=== PATIENT | female | born 1975 | race American Indian/Alaskan Native ===

== ENCOUNTER 2019-05-20 07:27 | Day surgery (SDC) | payer OTHER ==
[2019-05-20] MEDS ORDERED: ECOTRIN PO ONE (07:37)
[2019-05-20] MEDS ORDERED: NACL 0.9% 500 ML 500 ML IV SCH (08:00)
[2019-05-20 08:11] LABS: Basophils # (Auto) 0.1 K/mm3 (0.0-0.1); Eosinophils # (Auto) 0.1 K/mm3 (0.0-0.4); Eosinophils % (Auto) 2.2 % (0.0-4.3); Hematocrit 38.5 % (30.3-42.9); Lymphocytes # (Auto) 1.6 K/mm3 (1.2-5.4); Lymphocytes % (Auto) 27.8 % (13.4-35.0); Mean Corpuscular HGB Conc 34 % (30-34); Mean Corpuscular Volume 86 fl (79-97); Monocytes # (Auto) 0.5 K/mm3 (0.0-0.8); Platelet Count 279 K/mm3 (140-440); Red Blood Count 4.46 M/mm3 (3.65-5.03); Red Cell Distribution Width 13.2 % (13.2-15.2)
[2019-05-20 08:21] LABS: INR 1.07 (0.87-1.13)
[2019-05-20 08:22] LABS: Partial Thromboplastin Time 32.4 Sec. (24.2-36.6)
[2019-05-20] MEDS ORDERED: HEPARIN 10,000 UNITS/10 ML ONE (08:24)
[2019-05-20] MEDS ORDERED: HEPARIN/NS 5000 UNIT/500ML(CATH LAB) 1,000 ML IR ONE (08:24)
[2019-05-20] MEDS ORDERED: CALAN ONE (08:24)
[2019-05-20] MEDS ORDERED: NITROGLYCERIN SYRINGE 3 ML ONE (08:25)
[2019-05-20] MEDS ORDERED: XYLOCAINE 2% INFILTRATI ONE (08:25)
[2019-05-20] MEDS ORDERED: VERSED ONE (08:26)
[2019-05-20] MEDS ORDERED: SUBLIMAZE ONE (08:26)
[2019-05-20 08:37] LABS: BUN/Creatinine Ratio 11; Blood Urea Nitrogen 8 mg/dL (7-17); Calcium 9.2 mg/dL (8.4-10.2); Hemolysis Index 8
[2019-05-20] MEDS: LOPRESSOR IV ONE ×2 (09:17→09:20)
--- NOTE | 2019-05-20 09:43 | Short Stay Summary ---
Short Stay Documentation Date of service: 05/20/19 - History H&P: obtained from office - Allergies and Medications Current Medications: Allergies No Known Allergies Allergy (Unverified 05/20/19 07:27) Home Medications Medication Instructions Recorded Confirmed Last Taken Type Metoprolol [Lopressor TAB] 12.5 mg PO BID 05/20/19 05/20/19 05/20/19 07:00 History 12.5mg Active Medications Sodium Chloride (Nacl 0.9% 500 Ml) 500 mls @ 50 mls/hr IV DIRECT NIESHA Stop: 05/20/19 17:59 Last Admin: 05/20/19 08:35 Dose: 50 mls/hr Documented by: - Brief post op/procedure progress note Date of procedure: 05/20/19 Pre-op diagnosis: chest pain Post-op diagnosis: same Procedure: see report Anesthesia: local Estimated blood loss: none Pathology: none - Disposition Condition at discharge: Good Disposition: DC-01 TO HOME OR SELFCARE - Discharge Diagnoses (1) Chest pain Status: Chronic Qualifiers: Chest pain type: unspecified Qualified Code(s): R07.9 - Chest pain, unspecified Short Stay Discharge Plan Activity: advance as tolerated Diet: low cholesterol, low salt Wound: keep clean and dry Follow up with: KRIS GUEVARA MD [Staff Physician] - 7 Days
--- NOTE | 2019-05-20 11:06 | Cardiac Catherization Report ---
LEFT HEART CATHETERIZATION ORDERING PHYSICIAN: Manolo Craven MD CLINICAL INFORMATION: This is a 44-year-old -[place] female with recurrent chest pain despite negative stress test here for heart catheterization for suspected coronary artery disease in view of recurrent chest pain. Procedure was done with moderate sedation, 1 mg Versed, 50 mcg of fentanyl. Start sedation time 9:12 a.m., finished at 9:26 a.m., 14 minutes of moderate supervised sedation. Procedure was done via the right radial artery, sterile technique, local anesthesia, 6-[place] radial sheath inserted. Left system engaged with JR4 catheter, is a high anterior takeoff. Left main is large and patent, bifurcates into large LAD, is patent. Diagonal 1 is a medium caliber vessel, patent. Circumflex is a large caliber vessel, patent. OM1 and OM2, small caliber vessel, patent. RCA engaged with JR4 catheter, large dominant vessel, patent. PDA and PLV are small caliber vessel, patent. LV gram done in BAHAMIAN and COTTRELL view shows normal LV function. LVEDP 18 mmHg. LV was 150. Aortic is 145/88. No gradient across the aortic valve on pullback. A 5-[place] catheters all taken over guidewire, 6-[place] radial sheath was discontinued. Radial band applied. No hematoma, no bleeding. SUMMARY: 1. Normal coronaries, right dominant system. 2. Normal left ventricular function, normal left end-diastolic pressure. 3. Noncardiac chest pain. Discussed in detail with the patient and the patient's family. JOB# [id number] JUAN JOSÉ/WARD
[2019-05-20 13:03] VITALS: BP 115/62
== END 2019-05-20 13:30 | disposition home or self-care (01) ==
LOC: CATHLABREC 07:27
PROVIDERS: ATTEND Internal Medicine
DX: R07.89 Other chest pain (principal); I10 Essential (primary) hypertension; F41.9 Anxiety disorder, unspecified; Z80.8 Family history of malignant neoplasm of other organs or systems; Z79.899 Other long term (current) drug therapy; Z82.5 Family history of asthma and other chronic lower respiratory diseases; Z82.49 Family history of ischemic heart disease and other diseases of the circulatory system
CPT/HCPCS: 36415; 80048; 85025; 85610; 85730; 93010; 93458; 99156; C1887; C1894; J1644; J2250; J3010; J7040; 93005; Q9967